=== PATIENT | female | born 1970 | race Caucasian/White ===

== ENCOUNTER 2017-03-15 16:48 | Emergency (ER) | payer OTHER ==
[~2017-03-15] VITALS: Ht 160 cm; Wt 64.4 kg
[~2017-03-15 16:48] MED LIST: AMOXICILLIN 50500 MG PO; ASPIR 8181 MG PO; CELEXA20 MG; CEPHALEXIN 500500 M3 PO; FLEXERIL; PHENTERMINE H37.5 MG PO; PRILOSEC20 MG; PROMETHAZINE-C120 ML PO; PROTONIX40 M2 PO; VERAPAMIL HCL 880 M1; XANAX 0.5 MG0.5 MG; ZANTAC 150MG T150 MG
[2017-03-15 17:21] LABS: URINE BILIRUBIN NEGATIVE (Negative); URINE BLOOD 1+ (Negative); URINE CLARITY CLEAR; URINE COLOR YELLOW; URINE GLUCOSE-RANDOM NEGATIVE (Negative); URINE KETONES NEGATIVE (Negative); URINE LEUKOCYTES-REFLEX 1+ (Negative); URINE NITRITE-REFLEX NEGATIVE (Negative); URINE PROTEIN NEGATIVE (Negative); URINE SPECIFIC GRAVITY <= 1.005 (1.005-1.030); URINE UROBILINOGEN 0.2 E.U./dl (0.2-1.0)
[2017-03-15 17:36] LABS: BACTERIA-REFLEX >30 Many /HPF (None Seen); SQUAMOUS 0-3 Few /LPF (0-3); URINE RBC None Seen /HPF (0-2); URINE WBC-REFLEX 6-15 Few /HPF (0-5)
[2017-03-15 17:37] LABS: CASTS None Seen /LPF (None Seen); CRYSTALS None Seen /LPF (None Seen)
[2017-03-15 17:38] LABS: ABSOLUTE BASOPHILS 0.1 thou/uL (0.0-0.2); ABSOLUTE EOSINOPHILS 0.1 thou/uL (0.0-0.7); ABSOLUTE LYMPHOCYTES 2.6 thou/uL (0.8-5.3); ABSOLUTE MONOCYTES 0.7 thou/uL (0.0-1.2); BASOPHILS 1.2 %; EOSINOPHILS 0.9 %; HEMATOCRIT 40.8 % (37.0-47.0); HEMOGLOBIN 13.9 gm/dL (12.0-15.0); LYMPHOCYTES 24.5 %; MCH 29.9 pg (26.0-34.0); MCHC 34.1 g/dL (28.0-37.0); MCV 87.7 fL (80.0-100.0); MONOCYTES 6.9 %; MPV 7.8 fl. (7.2-11.1); NUCLEATED RBCS 0 /100WBC; PLATELET COUNT* 224 thou/uL (150-400); POLYS 66.5 %; RBC 4.66 mil/uL (4.20-5.00); RDW-CV 13.8 % (10.5-14.5); WBC 10.6 thou/uL (4.0-11.0)
[2017-03-15 17:44] LABS: CALCIUM 8.1 mg/dL (8.5-10.1); POTASSIUM 3.6 mmol/L (3.5-5.1)
[2017-03-15 17:49] LABS: ALBUMIN 3.8 g/dL (3.4-5.0); TOTAL BILIRUBIN 0.4 mg/dL (<0.1-1.0); TOTAL PROTEIN 7.2 g/dL (6.4-8.2)
[2017-03-15] MEDS ORDERED: MACROBID 100 M100 M1 PO (19:11)
[2017-03-15 19:31] VITALS: BP 117/59
== END 2017-03-15 19:32 | disposition home or self-care (01) ==
LOC: M.ERS 16:48
PROVIDERS: Physician Assistant
DX: N30.00 Acute cystitis without hematuria (principal); I10 Essential (primary) hypertension; K21.9 Gastro-esophageal reflux disease without esophagitis; F32.9 Major depressive disorder, single episode, unspecified; F10.99 Alcohol use, unspecified with unspecified alcohol-induced disorder; Z90.710 Acquired absence of both cervix and uterus; Z98.890 Other specified postprocedural states; Z88.2 Allergy status to sulfonamides; Z88.5 Allergy status to narcotic agent

== ENCOUNTER 2017-03-18 10:03 | Inpatient (IN) | payer OTHER ==
[~2017-03-18] VITALS: Ht 160 cm; Wt 67.1 kg
[~2017-03-18 10:03] MED LIST changes: +MACROBID 100 M100 M1 PO
[2017-03-18 10:15] VITALS: BP 110/79
[2017-03-18 10:25] LABS: URINE BILIRUBIN NEGATIVE (Negative); URINE BLOOD 1+ (Negative); URINE CLARITY CLEAR; URINE COLOR YELLOW; URINE GLUCOSE-RANDOM NEGATIVE (Negative); URINE KETONES NEGATIVE (Negative); URINE LEUKOCYTES-REFLEX TRACE (Negative); URINE NITRITE-REFLEX NEGATIVE (Negative); URINE PROTEIN TRACE (Negative); URINE UROBILINOGEN 0.2 E.U./dl (0.2-1.0)
[2017-03-18 10:32] LABS: CASTS None Seen /LPF (None Seen); CRYSTALS None Seen /LPF (None Seen); MUCUS 0-3 Light strn/LPF (None Seen); SQUAMOUS >10 Many /LPF (0-3)
[2017-03-18 10:33] LABS: URINE RBC 3-10 Few /HPF (0-2)
[2017-03-18 10:34] LABS: BACTERIA-REFLEX >30 Many /HPF (None Seen)
[2017-03-18 10:39] LABS: HEMOGLOBIN 15.2 gm/dL (12.0-15.0); MCH 29.8 pg (26.0-34.0); MCHC 33.8 g/dL (28.0-37.0); MCV 88.2 fL (80.0-100.0); NUCLEATED RBCS 0 /100WBC; PLATELET COUNT* 201 thou/uL (150-400); RDW-CV 13.7 % (10.5-14.5); WBC 10.6 thou/uL (4.0-11.0)
[2017-03-18 10:48] LABS: CALCIUM 8.1 mg/dL (8.5-10.1); POTASSIUM 4.3 mmol/L (3.5-5.1)
[2017-03-18 10:52] LABS: ALBUMIN 4.1 g/dL (3.4-5.0); TOTAL BILIRUBIN 0.6 mg/dL (<0.1-1.0); TOTAL PROTEIN 7.8 g/dL (6.4-8.2)
[2017-03-18 11:10] LABS: ABSOLUTE LYMPHOCYTES 0.6 thou/uL (0.8-5.3); ABSOLUTE MONOCYTES 0.3 thou/uL (0.0-1.2); ABSOLUTE NEUTROPHILS 9.6 thou/uL (1.6-8.1)
[2017-03-18 11:11] LABS: PLATELET ESTIMATE ADEQUATE
[2017-03-18 11:12] LABS: LARGE PLATELETS RARE
[2017-03-18 14:38] VITALS: BP 111/75
[2017-03-18 14:52] VITALS: BP 122/64
[2017-03-18 20:00] VITALS: BP 99/69
[2017-03-19 08:00] VITALS: BP 109/77
[2017-03-19 15:15] VITALS: BP 126/79
[2017-03-20 08:00] VITALS: BP 126/87
[2017-03-20] MEDS ORDERED: CEFUROXIME250 MG PO (15:46)
[2017-03-20 16:07] VITALS: BP 126/87
== END 2017-03-20 16:30 | disposition home or self-care (01) | DRG 690 ==
LOC: M.ERS 10:03 → M.3W 14:13 → M.TBA-ER 14:13 → M.3W 14:35
PROVIDERS: Nurse Practitioner Family; ADMIT Internal Medicine
DX: N39.0 Urinary tract infection, site not specified (principal); E87.2 Acidosis; R65.10 Systemic inflammatory response syndrome (SIRS) of non-infectious origin without acute organ dysfunction; A08.4 Viral intestinal infection, unspecified; I10 Essential (primary) hypertension; K21.9 Gastro-esophageal reflux disease without esophagitis; F32.9 Major depressive disorder, single episode, unspecified; Z79.899 Other long term (current) drug therapy; Z90.710 Acquired absence of both cervix and uterus; Z88.2 Allergy status to sulfonamides; Z88.5 Allergy status to narcotic agent

== ENCOUNTER 2017-04-04 10:46 | Emergency (ER) | payer OTHER ==
[~2017-04-04] VITALS: Ht 160 cm; Wt 63.5 kg
[~2017-04-04 10:46] MED LIST changes: +CEFUROXIME250 MG PO
[2017-04-04] MEDS ORDERED: XANAX 0.5 MG0.5 MG PO (11:01)
[2017-04-04 12:33] VITALS: BP 126/56
== END 2017-04-04 12:34 | disposition home or self-care (01) ==
LOC: M.ERS 10:46
DX: M79.605 Pain in left leg (principal); I10 Essential (primary) hypertension; K21.9 Gastro-esophageal reflux disease without esophagitis; F32.9 Major depressive disorder, single episode, unspecified; Z90.710 Acquired absence of both cervix and uterus; Z98.890 Other specified postprocedural states; Z88.2 Allergy status to sulfonamides; Z88.5 Allergy status to narcotic agent; W01.0XXA Fall on same level from slipping, tripping and stumbling without subsequent striking against object, initial encounter; Y93.89 Activity, other specified; Y92.89 Other specified places as the place of occurrence of the external cause; Y99.8 Other external cause status

== ENCOUNTER 2017-09-21 15:18 | Observation (INO) | payer OTHER ==
[~2017-09-21] VITALS: Ht 160 cm; Wt 65.3 kg
[~2017-09-21 15:18] MED LIST changes: +XANAX 0.5 MG0.5 MG PO
[2017-09-21 15:27] VITALS: BP 145/82
[2017-09-21] MEDS ORDERED: EFFEXOR XR75 MG PO (15:30)
[2017-09-21] MEDS ORDERED: ZANTAC 150MG T150 MG PO (15:31)
[2017-09-21] MEDS ORDERED: CLONAZEPAM 0.50.5 M1 PO (15:31)
[2017-09-21] MEDS ORDERED: ASPIR 8181 MG PO (15:31)
[2017-09-21 16:06] LABS: ABSOLUTE BASOPHILS 0.1 thou/uL (0.0-0.2); ABSOLUTE EOSINOPHILS 0.1 thou/uL (0.0-0.7); ABSOLUTE LYMPHOCYTES 2.2 thou/uL (0.8-5.3); ABSOLUTE MONOCYTES 0.6 thou/uL (0.0-1.2); ABSOLUTE NEUTROPHILS 5.5 thou/uL (1.6-8.1); BASOPHILS 0.8 %; EOSINOPHILS 1.4 %; HEMATOCRIT 41.7 % (37.0-47.0); HEMOGLOBIN 14.1 gm/dL (12.0-15.0); LYMPHOCYTES 26.3 %; MCH 29.6 pg (26.0-34.0); MCHC 33.9 g/dL (28.0-37.0); MCV 87.3 fL (80.0-100.0); MONOCYTES 6.8 %; MPV 7.6 fl. (7.2-11.1); NUCLEATED RBCS 0 /100WBC; PLATELET COUNT* 226 thou/uL (150-400); POLYS 64.7 %; RBC 4.78 mil/uL (4.20-5.00); RDW-CV 13.4 % (10.5-14.5); WBC 8.5 thou/uL (4.0-11.0)
--- NOTE | 2017-09-21 16:40 | EKG ---
[place] [address] ELECTROCARDIOGRAM REPORT Name: TORRI CAMACHO Room: [facility]#: [id number] Admission: 09/21/17 Attend Phys: Discharge: Date of : 66 Report #: [id number] THIS REPORT FOR: //name// [facility] ED Test Date: 2017-09-21 Test Time: 15:36:14 Pat Name: TORRI CAMACHO Department: Room: Gender: F Asset Recovery Specialist: : 1970 Requested By: Anna Olivier Order Number: [id number] MD: Mundo Max Measurements Intervals [place] Rate: 86 P: 11 OK: 145 QRS: 12 QRSD: 81 T: 34 QT: 356 QTc: 426 Interpretive Statements Sinus rhythm Abnormal R-wave progression, early transition No previous ECG available for comparison Electronically Signed On 09-21-2017 16:39:51 CDT by Mundo Max [email or web address] <ELECTRONICALLY SIGNED> By: Mundo Max MD, [facility] 09/21/17 1639 [id number] 1536 Mundo Max MD, FACC /EPI
[2017-09-21 17:01] LABS: ANION GAP 8 mmol/L (7-16); BUN 12 mg/dL (7-18); CHLORIDE 104 mmol/L (98-107); CO2 26 mmol/L (21-32); CREATININE 0.8 mg/dL (0.6-1.3); GLUCOSE 73 mg/dL (70-99); POTASSIUM 3.7 mmol/L (3.5-5.1); SODIUM 138 mmol/L (136-145)
[2017-09-21 17:12] LABS: ALBUMIN 3.4 g/dL (3.4-5.0); ALKALINE PHOSPHATASE 71 U/L (46-116); LIPASE 154 U/L (73-393); SGOT 14 U/L (15-37); SGPT 18 U/L (30-65); TOTAL BILIRUBIN 0.4 mg/dL (<0.1-1.0); TOTAL PROTEIN 6.7 g/dL (6.4-8.2); TROPONIN-I LEVEL <0.06 ng/mL (<0.06)
[2017-09-21 19:45] VITALS: BP 116/77
[2017-09-21 20:00] VITALS: BP 120/81
[2017-09-22] VITALS: BP 117/72
--- NOTE | 2017-09-22 00:49 | NUR ---
RECEIVED REPORT FROM GENEVA VINCENT. PT TRANSFERRED TO RM 230 VIA WHEELCHAIR AT 1999. PT A&0X4.VSS. ADMISSION HISTORY AND PHYSICAL ASSESSMENT COMPLETED AND CHARTED.PT ON RA WITH 99% O2 SAT.PT TRACING SR ON TELE. PT UP ADLIB. PT INSTRUCTED NPO POST MIDNIGHT FOR CARDIO CONSULT. COMMUNICATES UNDERSTANDING. DENIES ANY PAIN OR DISCOMFORT AT THIS TIME.PT ORIENTED TO ROOM & CALL LIGHT. CALL LIGHT WITHIN REACH. WILL CONTINUE TO MONITOR PT.
[2017-09-22 04:00] VITALS: BP 124/75
[2017-09-22 05:19] LABS: CHOLESTEROL 212 mg/dL (<200); HDL CHOLESTEROL 33 mg/dL (>40); LDL CHOLESTEROL 133 mg/dL (<100); TC:HDL 6.4 Ratio (Not establshd); TRIGLYCERIDE 232 mg/dL (<150); VLDL 46 mg/dL (<40)
[2017-09-22 05:22] LABS: SERUM ASSESSMENT Clear
--- NOTE | 2017-09-22 06:18 | NUR ---
PT A&OX4.VSS. NO CHANGES TRACING ON TELE. RESTED WELL ON BED. MAINTANED ON NPO FOR CARDIO CONSULTS. DENIES ANY PAIN OR DISCOMFORT. CALL LIGHT WITHIN REACH. BED IN LOW POSITION.
[2017-09-22 08:00] VITALS: BP 108/67
--- NOTE | 2017-09-22 09:58 | NUR ---
RECEIVED REPORT FORM RUFINO AND ASSUMED CARE OF PT @ 3763.PT IS A/O X4,VSS,TRACING SR ON THE MONITOR.LUNG SOUNDS ARE CLEAR.LAST BM WAS 09/20/17.IV LEFT AC PATENT AND SALINE LOCKED.PT IS CALM AND COOPERATIVE WITH NO C/O PAIN AT TIME OF ASSESSMENT.PT MAINTAINS NPO STATUS WAITING TO SEE CARDIOLOGY.PT IS UP AD JO-ANN IN ROOM.CALL LIGHT AND PERSONAL BELONGINGS WITHIN REACH.WILL CONTINUE TO MONITOR. CARDIOLOGY SAW PT NO FURTHER ORDERS AT THIS TIME.PT SHOWERED THIS AM.
[2017-09-22 12:00] VITALS: BP 124/84
[2017-09-22] MEDS ORDERED: LIPITOR 20 MG T20 M1 PO (13:02)
[2017-09-22] MEDS ORDERED: PROTONIX40 M1 PO (13:02)
[2017-09-22] MEDS ORDERED: CARAFATE 1 GM TA1 G1 PO (13:02)
[2017-09-22 13:06] VITALS: BP 108/67
--- NOTE | 2017-09-22 13:24 | NUR ---
PT OK FOR DISCHARGE.PAPERWORK COMPLETED AND GIVEN TO PT.SCRIPTS GIVEN WITH EDUCATION.IV REMOVED.HEART MONITOR REMOVED AND RETURNED TO NURSING STATION.ALL PERSONAL BELONGINGS PACKED AND TAKEN WITH PT.PT WALKED OUT WITH SIGNIFICANT OTHER.
--- NOTE | 2017-09-24 07:19 | CON ---
[address] [address] CONSULTATION Name: TORRI CAMACHO Room: [address] Patti Neff#: [id number] Admission: 09/21/17 Attend Phys: George Hussein MD Discharge: 09/22/17 Date of : 66 Report #: [id number] THIS REPORT FOR: //name// CC: Tank [place] DO George Hussein DATE OF SERVICE: 09/22/2017 HISTORY OF PRESENT ILLNESS: The patient is a 47-year-old single white female who I was asked to see in the hospital today because of an episode of chest pain. The patient has a significant past medical history. She apparently had a coronary stent placed at [facility] about 3 years ago. Her last stress test there was about 2 months ago. She stays fairly active, but does not exercise on a regular basis. She has a long history of indigestion. She has had an EGD in the past. Food tends to stick up in her throat when swallowing. Recently, she has had a lot of burning in her chest. She has had a lot of belching and vomiting. Yesterday, she had pain in her chest. She became diaphoretic and nauseated. She drove herself to the Emergency Room last night, was admitted. Cardiology consultation was requested. She denies any syncope. She does become short of breath with exertion and has occasional swelling of her feet. She has occasional racing of her heart, but she has had no syncope. PAST MEDICAL HISTORY: Hysterectomy, knee surgery. She has had high blood pressure, but stopped taking her medications because it made her dizzy. She has a history of hyperlipidemia, but stopped taking Lipitor. No history of diabetes. She has a history of depression and was hospitalized in the past, currently sees a psychiatrist. CURRENT MEDICATIONS: Aspirin, clonazepam, ranitidine, Effexor. ALLERGIES: SHE HAS AN ALLERGY TO SULFA DRUGS. FAMILY HISTORY: Her mother had a heart attack. SOCIAL HISTORY: She is , lives in [place] with a sister. She quit smoking 10 years ago. No alcohol abuse. Denies illicit drug use. REVIEW OF SYSTEMS: She has had no history of stroke, asthma, liver disease. She has had hematuria in the past. No cancer. She has a history of depression. No chronic skin condition. PHYSICAL EXAMINATION: GENERAL: Revealed a young female who appeared in no acute distress, lying in bed. VITAL SIGNS: She had a blood pressure of 120/70, pulse 60. [place] [address] CONSULTATION Name: TORRI CAMACHO Room: [address] M.R.#: [id number] Admission: 09/21/17 Attend Phys: George Hussein MD Discharge: 09/22/17 Date of : 66 Report #: [id number] HEENT: She was anicteric, conjunctivae pink. Mucous members moist. NECK: Veins nondistended. No carotid bruits. Neck is supple. CHEST: Clear to auscultation. CARDIOVASCULAR: Regular rate and rhythm without rub or murmur. ABDOMEN: Soft, nontender. EXTREMITIES: Had no edema. Posterior tibial pulse 1+ bilaterally. SKIN: Cool and dry. DIAGNOSTIC DATA: ECG showed a sinus rhythm. There was no ST or T-wave change noted. She had a chest x-ray done in the Emergency Room yesterday that showed clear lung [place], normal heart size. She had lab work that included troponin series that were all 0.06. Potassium 3.7, creatinine 0.8. Liver function studies were normal. Cholesterol 212, triglycerides 232, HDL 33, LDL 133. White blood cell count 8.5, hemoglobin 14.1. IMPRESSION AND RECOMMENDATIONS: 1. Chest pain. Suspect noncardiac. I will attempt to obtain the records from [place]. We will recommend no further cardiac workup at this time. I would continue aspirin a day because of her history of coronary artery stents. 2. Hyperlipidemia. I would try a statin drug at this time. 3. History of depression. 4. Dyspepsia. Consider gastrointestinal workup. 5. Vomiting. Reason unclear. No evidence of an acute abdomen. <ELECTRONICALLY SIGNED> By: Mundo Max MD, [facility] 09/24/17 0719 0947 [id number] Max MD, FACC /nt
== END 2017-09-22 13:15 | disposition home or self-care (01) ==
LOC: M.ERS 15:18 → M.TBA-ER 18:03 → M.2W 20:37
PROVIDERS: Physician Assistant; ADMIT Internal Medicine
DX: R07.9 Chest pain, unspecified (principal); K21.0 Gastro-esophageal reflux disease with esophagitis; I10 Essential (primary) hypertension; I25.10 Atherosclerotic heart disease of native coronary artery without angina pectoris; F32.9 Major depressive disorder, single episode, unspecified; K22.70 Barrett's esophagus without dysplasia; E78.5 Hyperlipidemia, unspecified; R10.13 Epigastric pain; R11.10 Vomiting, unspecified; Z95.5 Presence of coronary angioplasty implant and graft; Z98.890 Other specified postprocedural states; Z90.710 Acquired absence of both cervix and uterus

== ENCOUNTER 2018-04-12 10:04 | Emergency (ER) | payer OTHER ==
[~2018-04-12] VITALS: Ht 160 cm; Wt 68.0 kg
[~2018-04-12 10:04] MED LIST changes: +CARAFATE 1 GM TA1 G1 PO; +CLONAZEPAM 0.50.5 M1 PO; +EFFEXOR XR75 MG PO; +LIPITOR 20 MG T20 M1 PO; +PROTONIX40 M1 PO; +ZANTAC 150MG T150 MG PO
[2018-04-12] MEDS ORDERED: CELEXA40 MG PO (10:17)
[2018-04-12 10:19] LABS: URINE BILIRUBIN NEGATIVE (Negative); URINE BLOOD NEGATIVE (Negative); URINE CLARITY CLEAR; URINE COLOR YELLOW; URINE GLUCOSE-RANDOM NEGATIVE (Negative); URINE KETONES NEGATIVE (Negative); URINE LEUKOCYTES-REFLEX TRACE (Negative); URINE PROTEIN NEGATIVE (Negative); URINE UROBILINOGEN 0.2 E.U./dl (0.2-1.0)
[2018-04-12 10:23] LABS: URINE NITRITE-REFLEX POSITIVE (Negative)
[2018-04-12 10:29] LABS: BACTERIA-REFLEX >30 Many /HPF (None Seen); CASTS None Seen /LPF (None Seen); CRYSTALS None Seen /LPF (None Seen); MUCUS None Seen strn/LPF (None Seen); SQUAMOUS 4-10 Moderate /LPF (0-3); URINE RBC 0-2 Rare /HPF (0-2); URINE WBC-REFLEX 6-15 Few /HPF (0-5)
[2018-04-12 10:41] LABS: ABSOLUTE BASOPHILS 0.1 thou/uL (0.0-0.2); ABSOLUTE EOSINOPHILS 0.1 thou/uL (0.0-0.7); ABSOLUTE LYMPHOCYTES 2.2 thou/uL (0.8-5.3); ABSOLUTE MONOCYTES 0.6 thou/uL (0.0-1.2); ABSOLUTE NEUTROPHILS 7.3 thou/uL (1.6-8.1); BASOPHILS 1.1 %; EOSINOPHILS 0.7 %; HEMATOCRIT 43.1 % (37.0-47.0); HEMOGLOBIN 14.6 gm/dL (12.0-15.0); LYMPHOCYTES 21.5 %; MCH 29.6 pg (26.0-34.0); MCHC 33.9 g/dL (28.0-37.0); MCV 87.3 fL (80.0-100.0); MONOCYTES 5.4 %; MPV 7.8 fl. (7.2-11.1); NUCLEATED RBCS 0 /100WBC; PLATELET COUNT* 228 thou/uL (150-400); POLYS 71.3 %; RBC 4.94 mil/uL (4.20-5.00); RDW-CV 13.2 % (10.5-14.5); WBC 10.3 thou/uL (4.0-11.0)
[2018-04-12 10:50] LABS: CALCIUM 8.7 mg/dL (8.5-10.1)
[2018-04-12 10:54] LABS: ALBUMIN 3.5 g/dL (3.4-5.0); TOTAL BILIRUBIN 0.5 mg/dL (<0.1-1.0); TOTAL PROTEIN 6.5 g/dL (6.4-8.2)
[2018-04-12] MEDS ORDERED: ZOFRAN ODT4 MG SUBLING (11:12)
[2018-04-12] MEDS ORDERED: NORCO 5-325 TA1 EACH PO (11:12)
[2018-04-12] MEDS ORDERED: CIPROFLOXACIN500 M1 PO (11:12)
[2018-04-12 12:01] VITALS: BP 123/67
== END 2018-04-12 13:25 | disposition home or self-care (01) ==
LOC: M.ERS 10:04
PROVIDERS: Family Medicine
DX: N39.0 Urinary tract infection, site not specified (principal); I10 Essential (primary) hypertension; K21.9 Gastro-esophageal reflux disease without esophagitis; F32.9 Major depressive disorder, single episode, unspecified; Z88.2 Allergy status to sulfonamides; Z88.5 Allergy status to narcotic agent; Z90.710 Acquired absence of both cervix and uterus

== ENCOUNTER 2020-09-06 18:52 | Emergency (ER) | payer MEDICAID ==
[~2020-09-06] VITALS: Ht 160 cm; Wt 67.1 kg
[~2020-09-06 18:52] MED LIST changes: +CELEXA40 MG PO; +CIPROFLOXACIN500 M1 PO; +NORCO 5-325 TA1 EACH PO; +ZOFRAN ODT4 MG SUBLING
[2020-09-06] MEDS ORDERED: VERAPAMIL HCL40 MG PO (19:04)
[2020-09-06 21:23] VITALS: BP 113/85
== END 2020-09-06 21:25 | disposition home or self-care (01) ==
LOC: M.ERS 18:52
DX: M19.071 Primary osteoarthritis, right ankle and foot (principal); I10 Essential (primary) hypertension; K21.9 Gastro-esophageal reflux disease without esophagitis; Z88.2 Allergy status to sulfonamides; Z88.5 Allergy status to narcotic agent; Z90.710 Acquired absence of both cervix and uterus; Z87.440 Personal history of urinary (tract) infections

== ENCOUNTER 2021-05-16 10:29 | Emergency (ER) | payer MEDICAID ==
[~2021-05-16] VITALS: Ht 160 cm; Wt 70.3 kg
[~2021-05-16 10:29] MED LIST changes: +VERAPAMIL HCL40 MG PO
[2021-05-16] MEDS ORDERED: EMGALITY120 MG/1 M SUBQ (10:54)
[2021-05-16] MEDS ORDERED: REPATHA PU420 MG/3.5 SUBQ (10:54)
[2021-05-16] MEDS ORDERED: IBUPROFEN 800800 MG PO (11:03)
[2021-05-16] MEDS ORDERED: CEPHALEXIN500 MG PO (11:03)
[2021-05-16] MEDS ORDERED: DIFLUCAN150 M1 PO (11:03)
[2021-05-16] MEDS ORDERED: DOXYCYCLINE 10100 MG PO (11:03)
[2021-05-16 11:27] VITALS: BP 107/74
== END 2021-05-16 11:30 | disposition home or self-care (01) ==
LOC: M.ERS 10:29
DX: S20.161A Insect bite (nonvenomous) of breast, right breast, initial encounter (principal); I10 Essential (primary) hypertension; K21.9 Gastro-esophageal reflux disease without esophagitis; Z87.440 Personal history of urinary (tract) infections; Z88.2 Allergy status to sulfonamides; Z88.5 Allergy status to narcotic agent; Z90.710 Acquired absence of both cervix and uterus; W57.XXXA Bitten or stung by nonvenomous insect and other nonvenomous arthropods, initial encounter; Y93.89 Activity, other specified; Y92.89 Other specified places as the place of occurrence of the external cause; Y99.8 Other external cause status